=== PATIENT | male | born 1965 | race Caucasian/White ===

== ENCOUNTER → 2018-12-20 18:16 | Outpatient (REF) | payer OTHER, SELFPAY | LOC: LAB 18:16 | PROVIDERS: Visit Provider Otolaryngology | DX: C09.9 Malignant neoplasm of tonsil, unspecified (principal); D49.0 Neoplasm of unspecified behavior of digestive system | CPT/HCPCS: 87070; 87075; 87077; 87147; 87186; 87205 ==

== ENCOUNTER → 2019-06-22 16:39 | Outpatient (CLI) | payer OTHER, SELFPAY ==
--- NOTE | 2019-06-22 | DI.MRI.S_ITS ---
PROCEDURE: MR SHOULDER LT WO CON INDICATIONS: Left shoulder pain with decreased range of motion TECHNIQUE: Noncontrast oblique coronal T2 fast spin echo with fat saturation, oblique sagittal T1 spin echo and T2 fast spin echo with fat saturation, axial T1 spin echo and T2 fast spin echo with fat saturation through the shoulder. COMPARISON: None. FINDINGS: Image quality: Excellent. Rotator cuff: Supraspinatus tendinopathy mild thickening. Interstitial tearing is present extending from the critical zone to the footprint. There is low-grade bursal and articular surface fraying. Teres minor and infraspinatus tendons appear intact. Subscapularis tendon appears grossly intact. No atrophy of the rotator cuff musculature Bones and bursae: No bone marrow contusions or fractures. Moderate hypertrophic acromioclavicular joint degeneration. The acromion demonstrates conventional anatomy, without an os acromiale. Trace subacromial-subdeltoid bursal fluid. Capsule and soft tissues: Irregularity of the posterior labrum with mild adjacent soft tissue edema. There is adjacent glenoid rim segmental sclerosis. No definite posterior subluxation of the humeral head relative to the glenoid. The long head of the biceps tendon demonstrates normal location and morphology. The rotator interval appears normal, without fibrosis. The coracohumeral ligament is normal in thickness. IMPRESSION: Supraspinatus tendinopathy and low-grade bursal and articular surface fraying. Trace subacromial/subdeltoid bursitis. 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 Dictated by: Bernardo Lopez M.D. on 06/23/2019 at 8:54 Approved by: Bernardo Lopez M.D. on 06/23/2019 at 9:09
== END ==
PROVIDERS: Visit Provider Family Medicine
DX: M25.512 Pain in left shoulder (principal); M75.52 Bursitis of left shoulder; S43.492A Other sprain of left shoulder joint, initial encounter
CPT/HCPCS: 73221